=== PATIENT | male | born 1965 | race Caucasian/White ===

== ENCOUNTER → 2017-10-17 06:45 | Outpatient (CLI) | payer OTHER | END | disposition home or self-care (01) | LOC: LAB 06:45 | DX: N40.0 Benign prostatic hyperplasia without lower urinary tract symptoms (principal); E29.1 Testicular hypofunction; R31.9 Hematuria, unspecified ==

== ENCOUNTER 2017-10-20 08:34 | Outpatient (CLI) | payer OTHER | END 2017-10-20 14:47 | disposition home or self-care (01) | LOC: LAB 08:34 | DX: N40.0 Benign prostatic hyperplasia without lower urinary tract symptoms (principal); E29.1 Testicular hypofunction; R31.9 Hematuria, unspecified ==

== ENCOUNTER → 2017-10-23 07:08 | Outpatient (CLI) | payer OTHER | END | disposition home or self-care (01) | LOC: LAB 07:08 | DX: N40.0 Benign prostatic hyperplasia without lower urinary tract symptoms (principal); E29.1 Testicular hypofunction; R31.9 Hematuria, unspecified ==

== ENCOUNTER 2018-01-01 06:27 | Outpatient (CLI) | payer OTHER | END 2018-01-01 07:23 | disposition home or self-care (01) | LOC: LAB 06:27 | DX: I11.9 Hypertensive heart disease without heart failure (principal); E11.9 Type 2 diabetes mellitus without complications; E78.2 Mixed hyperlipidemia; E55.9 Vitamin D deficiency, unspecified; E03.9 Hypothyroidism, unspecified; C18.9 Malignant neoplasm of colon, unspecified ==

== ENCOUNTER → 2018-07-20 06:17 | Outpatient (CLI) | payer OTHER | END | disposition home or self-care (01) | LOC: LAB 06:17 | DX: D50.8 Other iron deficiency anemias (principal); E03.8 Other specified hypothyroidism; E78.2 Mixed hyperlipidemia; I11.9 Hypertensive heart disease without heart failure; E56.8 Deficiency of other vitamins; N39.0 Urinary tract infection, site not specified; R19.5 Other fecal abnormalities; E55.9 Vitamin D deficiency, unspecified; N19 Unspecified kidney failure; E11.9 Type 2 diabetes mellitus without complications; R80.8 Other proteinuria; K92.1 Melena; C18.9 Malignant neoplasm of colon, unspecified; Z12.11 Encounter for screening for malignant neoplasm of colon ==

== ENCOUNTER → 2018-10-31 | Outpatient (CLI) | payer OTHER | END | disposition home or self-care (01) | LOC: RAD 09:15 | DX: S79.811A Other specified injuries of right hip, initial encounter (principal) ==

== ENCOUNTER 2018-12-18 07:16 | Outpatient (CLI) | payer OTHER | END 2018-12-18 07:20 | disposition home or self-care (01) | LOC: LAB 07:16 | DX: E03.8 Other specified hypothyroidism (principal); D50.9 Iron deficiency anemia, unspecified; E78.2 Mixed hyperlipidemia; I11.9 Hypertensive heart disease without heart failure; E56.8 Deficiency of other vitamins; N39.0 Urinary tract infection, site not specified; Z12.11 Encounter for screening for malignant neoplasm of colon; R19.5 Other fecal abnormalities; E55.9 Vitamin D deficiency, unspecified; N19 Unspecified kidney failure; E11.9 Type 2 diabetes mellitus without complications; R80.8 Other proteinuria; C18.0 Malignant neoplasm of cecum; K92.1 Melena; R97.20 Elevated prostate specific antigen [PSA]; N18.2 Chronic kidney disease, stage 2 (mild) ==

== ENCOUNTER → 2019-08-09 06:30 | Outpatient (CLI) | payer OTHER | END | disposition home or self-care (01) | LOC: LAB 06:30 | DX: D50.8 Other iron deficiency anemias (principal); E03.8 Other specified hypothyroidism; E78.2 Mixed hyperlipidemia; I11.9 Hypertensive heart disease without heart failure; E56.8 Deficiency of other vitamins; N39.0 Urinary tract infection, site not specified; Z12.11 Encounter for screening for malignant neoplasm of colon; E55.9 Vitamin D deficiency, unspecified; N19 Unspecified kidney failure; E11.9 Type 2 diabetes mellitus without complications; R80.8 Other proteinuria; C18.0 Malignant neoplasm of cecum; K92.1 Melena; N40.1 Benign prostatic hyperplasia with lower urinary tract symptoms; R97.0 Elevated carcinoembryonic antigen [CEA] ==

== ENCOUNTER 2019-08-27 11:04 | Outpatient (CLI) | payer OTHER | END 2019-08-27 11:07 | disposition home or self-care (01) | LOC: RAD 11:04 | DX: I11.9 Hypertensive heart disease without heart failure (principal); R06.2 Wheezing ==

== ENCOUNTER 2020-01-14 06:29 | Outpatient (CLI) | payer OTHER | END 2020-01-14 06:49 | disposition home or self-care (01) | LOC: LAB 06:29 | DX: N40.0 Benign prostatic hyperplasia without lower urinary tract symptoms (principal); R97.20 Elevated prostate specific antigen [PSA]; R31.1 Benign essential microscopic hematuria; D50.8 Other iron deficiency anemias; E03.8 Other specified hypothyroidism; E78.2 Mixed hyperlipidemia; I11.9 Hypertensive heart disease without heart failure; E56.8 Deficiency of other vitamins; N39.0 Urinary tract infection, site not specified; Z12.11 Encounter for screening for malignant neoplasm of colon; R19.5 Other fecal abnormalities; E55.9 Vitamin D deficiency, unspecified; N19 Unspecified kidney failure; E11.9 Type 2 diabetes mellitus without complications; R80.8 Other proteinuria; C18.8 Malignant neoplasm of overlapping sites of colon; K92.1 Melena; N18.2 Chronic kidney disease, stage 2 (mild); I10 Essential (primary) hypertension ==

== ENCOUNTER 2020-07-11 01:11 | Outpatient (CLI) | payer OTHER | END 2020-07-11 16:49 | disposition home or self-care (01) | LOC: PPH VACUNA 01:11 | DX: Z23 Encounter for immunization (principal) ==